=== PATIENT | female | born 1950 | race Caucasian/White ===

== ENCOUNTER 2016-11-21 05:55 | Day surgery (SDC) | payer MEDICARE ==
[2016-11-14 16:19] LABS: BASOPHILS 0.6 %; BASOPHILS ABSOLUTE 0.04 10/3/uL (0.0-0.16); EOSINOPHILS 1.9 %; EOSINOPHILS ABSOLUTE 0.13 10/3/uL (0.0-0.53); HEMATOCRIT 41.2 % (36.0-48.0); HEMOGLOBIN 13.6 g/dL (12.0-16.0); IMMATURE GRANULOCYTES 0.1 %; IMMATURE GRANULOCYTES ABSOLUTE 0.01 10/3/uL (0.0-0.11); LYMPHOCYTES 23.5 %; LYMPHOCYTES ABSOLUTE 1.61 10/3/uL (0.67-4.30); MEAN CORPUSCULAR HEMOGLOB 31.7 pg (26.0-34.0); MEAN PLATELET VOLUME 10.8 fL (9.2-13.0); MONOCYTES 8.8 %; NEUTROPHILS 65.1 %; NEUTROPHILS ABSOLUTE 4.45 10/3/uL (2.02-8.40); PLATELET COUNT 251 10/3/uL (150-400); RBC DISTRIBUTION WIDTH 13.5 % (12.0-16.0); RED CELL COUNT 4.29 10/6/uL (4.0-5.6); WHITE BLOOD CELLS 6.8 10/3/uL (4.5-10.5)
[2016-11-14 16:21] LABS: MANUAL DIFF NO %
[2016-11-14 16:46] LABS: BUN (BLOOD UREA NITROGEN) 25 MG/DL (6-23); CALCIUM, SERUM 9.2 MG/DL (8.5-10.4); CHLORIDE, SERUM 106 MMOL/L (96-112); CO2 (CARBON DIOXIDE) 30 MMOL/L (24-34); CREATININE 0.92 MG/DL (0.55-1.02); GFR AFRICAN AMERICAN 75 ML/MIN (>=60); GFR NON AFRICAN AMERICAN 64 ML/MIN (>=60); GLUCOSE, SERUM 113 MG/DL (60-99); POTASSIUM, SERUM 3.9 MMOL/L (3.5-5.3); SODIUM, SERUM 142 MMOL/L (135-148)
[2016-11-14 16:47] LABS: CEA 0.9 NG/ML
--- NOTE | ~2016-11-21 | OP ---
Record Of Operation [facility] [address] [place]. [address] NAME: DERIK SANDERS : 48 STATUS : [facility]#: [id number] AGE: 66 ADM/REG DATE : 11/21/16 MR#: [id number] REPORT SERV DATE: 11/24/16 DICTATED BY: RIZWAN ROMEO DATE: 11/22/16 REPORT STATUS : Draft TRANSCRIBED BY: MODL DATE: 11/22/16 DATE OF PROCEDURE: 11/21/2016 PREOPERATIVE DIAGNOSIS: Ovarian mass with a normal CA-125. POSTOPERATIVE DIAGNOSIS: Benign left ovarian mass. PROCEDURE: 1. Laparoscopic lysis of adhesions, CPT Code 43134. 2. Laparoscopic bilateral salpingo-oophorectomy via the da Rasheed laparoscopic robotic instrument, CPT code 42031. SURGEON: Rizwan Romeo M.D. CITY CARRIER: [place]. ESTIMATED BLOOD LOSS: 20 mL. FLUIDS: 1500 mL crystalloid. ANESTHESIA: General endotracheal. INDICATIONS AND FINDINGS: This is a 66-year-old female, who presents with a large abdominal pelvic mass measuring approximately 15 to 18 cm. She is noted to have a normal CA-125 preoperatively. She was taken to the operating room for removal. Intraoperatively, she was found to have a large mass on the left ovary. The laparoscoped revealed no gross evidence of malignancy, and decision was made to proceed with decompressing the mass. There was minimal spill in the abdominal cavity. The mass was ultimately removed, examined on the back table, and there was no gross evidence of malignancy. There were multiple adhesions of the mass including the omentum, both right and left colon, extensive lysis of adhesion was required which required greater than 50% of the entire operative time. The mass again appeared to be grossly benign. Postprocedure, a cystoscopy was performed with excellent bilateral ureteral jets. No evidence of bladder defect. PROCEDURE IN DETAIL: The patient was taken to the operating room, where she was placed in supine position for administration of general anesthesia. She was then placed in dorsal lithotomy position and prepped and draped in usual sterile fashion. Our attention was turned toward the anterior abdominal wall, incision was made approximately 25 cm above the pubic symphysis taken down to the underlying layer of fascia. The fascia was grasped with two sutures of 0 Vicryl, tented up and entered sharply. The peritoneum was then tented up and entered sharply laparoscopic trocars placed under direct visualization. The abdominal cavity was insufflated with CO2. Two additional 8 mm trocars were placed, one additional 12 mm trocar was placed all under direct visualization. The abdominal cavity was again visualized with the above findings noted. The patient laparoscopic robotic instrument were obtained. Extensive lysis of adhesions was then undertaken. Again, there was omentum attached to anterior abdominal wall, omentum Record Of Operation [facility] [address] [place]. [address] NAME: DERIK SANDERS : 48 STATUS : [facility]#: [id number] AGE: 66 ADM/REG DATE : 11/21/16 MR#: [id number] REPORT SERV DATE: 11/24/16 DICTATED BY: RIZWAN ROMEO DATE: 11/22/16 REPORT STATUS : Draft TRANSCRIBED BY: YARELI DATE: 11/22/16 attached to the ovary, both ovaries were adherent to both the right and left colon and required extensive lysis of adhesion. Once the adhesions were adequately were displaced, the retroperitoneal spaces were opened. The gonadal vessels were isolated, and hemoclips were placed to control long-term hemostasis. They were then coagulated and transected. Additional lysis of adhesions was undertaken on the left. The ureter was displaced laterally to avoid injury. The ovary was decompressed, and again there was minimal spill on the abdominal cavity. Both ovaries were essentially placed into EndoCatch bag and delivered through the trocar sites. At the completion of the procedure, the pelvis was irrigated with copious amounts of warm water. All pedicles were inspected and found to be hemostatic. The laparoscopic instruments were removed. The initial site and the 12 mm port were closed with 0 Vicryl of fascia. The skin sites were closed with 4-0 Monocryl and Dermabond was placed. Post procedure, a cystoscopy was performed with excellent bilateral ureteral jets. No evidence of bladder defect. At the completion of the procedure, the anesthesia was reversed, and the patient was extubated and brought to recovery in stable condition. HUMBERTO/MODL Rizwan Romeo M.D. / [id number] CC: Becky Varghese M.D.
[~2016-11-21 05:55] MED LIST: 8 HOUR650 MG PO; ALEVE220 MG PO; DSS PO; VESICARE5 PO; VITAMIN D2000 UNIT PO
== END 2016-11-21 17:15 | disposition home or self-care (01) ==
LOC: SDC 05:55
PROVIDERS: Obstetrics & Gynecology Gynecologic Oncology
PROC: 0UB24ZZ Excision of Bilateral Ovaries, Percutaneous Endoscopic Approach (ICD-10-PCS; principal; 2016-11-21 07:00)
PROC: 0UB74ZZ Excision of Bilateral Fallopian Tubes, Percutaneous Endoscopic Approach (ICD-10-PCS; 2016-11-21 07:00)
DX: D27.1 Benign neoplasm of left ovary (principal); D28.2 Benign neoplasm of uterine tubes and ligaments; M19.90 Unspecified osteoarthritis, unspecified site; Z90.710 Acquired absence of both cervix and uterus; Z79.899 Other long term (current) drug therapy; Z90.49 Acquired absence of other specified parts of digestive tract
CPT/HCPCS: 36415; 71020; 80048; 82378; 85025; 86304; 86850; 86900; 86901; 88112; 88305; 93005; A9270-GY; J0694; J1885; J2250; J2270; J2405; J2710; J3010